=== PATIENT | male | born 1975 ===

== ENCOUNTER 2020-06-28 16:56 | Emergency (ER) | payer OTHER ==
[~2020-06-28] VITALS: Ht 172.7 cm; Wt 99.8 kg
[2020-06-28] MEDS ORDERED: COZAAR100 MG (17:08)
== END 2020-06-28 18:00 | disposition home or self-care (01) ==
LOC: ER 16:56
DX: S13.4XXA Sprain of ligaments of cervical spine, initial encounter (principal); V49.9XXA Car occupant (driver) (passenger) injured in unspecified traffic accident, initial encounter; Y93.89 Activity, other specified; Y92.488 Other paved roadways as the place of occurrence of the external cause; Y99.8 Other external cause status